=== PATIENT | male | born 1995 | race Hispanic/Latino ===

== ENCOUNTER 2017-08-28 10:42 | Emergency (ER) | payer OTHER ==
[~2017-08-28] VITALS: Ht 167.6 cm; Wt 121.6 kg
[~2017-08-28 10:42] MED LIST: MEDROL DOSEPAK1 PAC PO; PROVENTIL0.09 MG/A1 INH; ROBITUSSIN W/CO10 ML PO; ZITHROMAX Z-PA250 M1 PO
--- NOTE | 2017-08-28 11:13 | ED DYSPNEA/ASTHMA COMPLAINT ---
History of Present Illness General Chief Complaint: General Adult Stated Complaint: SOB, TIGHTNESS IN CHEST Source: patient Exam Limitations: no limitations Vital Signs & Intake/Output Vital Signs & Intake/Output Vital Signs Date Time Temp Pulse Resp B/P B/P Pulse O2 O2 Flow FiO2 Mean Ox Delivery Rate 08/28 1234 96.3 66 18 140/88 99 Room Air 08/28 1053 97.9 60 20 118/78 99 Room Air Allergies Coded Allergies: amoxicillin (From AUGMENTIN) (Intermediate, HIVES 10/15/15) clavulanic acid (From AUGMENTIN) (Intermediate, HIVES 10/15/15) Reconcile Medications Albuterol Sulfate (Proventil Hfa) 0.09 MG/Actuation TONI 2 PUFF INH Q4H PRN WHEEZING/SHORTNESS OF BREATH Azithromycin (Zithromax Z-Martin) 250 MG CAP 1 DP PO AD INFECTION 2 the first day followed by 1 for days 2-5 Methylprednisolone. (Medrol) 1 PAC PAC 1 PAC PO TAPER INFLAMMATION/BRONCHITIS Robitussin AC (Guaifenesin-Codeine Syrup) 10 ML UDC 10 ML PO Q6H PRN COUGH MAY CAUSE DROWSINESS Triage Note: C/O SOB SINCE 08/23, WITH SLIGHT COUGH, CHEST PRESSURE X 2 DAYS. Triage Nurses Notes Reviewed? yes HPI: 22M no PMH with 1 week of shortness of breath and 2 days of upper chest heaviness and right lower chest pain with deep inspiration. No recent cough, fever, chills, sputum, malaise, illness. No chest pain or dyspnea with exertion. No family history of heart disease or VTE. Does not smoke, no risk factors for CAD. Able to exercise without any problems. Past History Travel History Traveled to [place] past 21 day No Medical History Any Pertinent Medical History? 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 No Review of Systems Review of Systems Constitutional: Reports: no symptoms. EENTM: Reports: no symptoms. Respiratory: Reports: no symptoms. Cardiovascular: Reports: no symptoms. GI: Reports: no symptoms. Genitourinary: Reports: no symptoms. Musculoskeletal: Reports: no symptoms. Skin: Reports: no symptoms. Neurological/Psychological: Reports: no symptoms. Hematologic/Endocrine: Reports: no symptoms. Immunologic/Allergic: Reports: no symptoms. All Other Systems: Reviewed and Negative Physical Exam Physical Exam General Appearance: well developed/nourished, no apparent distress Head: atraumatic, normal appearance Eyes: Bilateral: normal appearance. Ears, Nose, Throat: normal pharynx, normal ENT inspection, hearing grossly normal Neck: normal inspection, supple, full range of motion Respiratory: normal breath sounds, chest non-tender, no respiratory distress Cardiovascular: regular rate/rhythm Gastrointestinal: soft, non-tender Extremities: normal inspection, normal range of motion Neurologic/Psych: awake, alert, oriented x 3, normal mood/affect Skin: intact, normal color, warm/dry Core Measures ACS in differential dx? Yes No ASA d/t Medication Refused CVA/TIA Diagnosis No Sepsis Present: No Sepsis Focused Exam Completed? No Progress Differential Diagnosis: asthma, AMI, altitude sickness, bronchitis, costochondritis, CHF, COPD, musculoskeletal pain, pericarditis, pulmonary embolism, pneumonia, pneumothorax, rib fracture, unstable angina Plan of Care: Orders Procedure Date/time Status Add-on Test (ER Only) 08/28 1223 Active URINE DRUGS OF ABUSE 08/28 1055 Active TROPONIN LEVEL 08/28 1055 Complete D-DIMER 08/28 1055 Complete C-REACTIVE PROTEIN 08/28 1055 Complete COMPREHENSIVE METABOLIC PANEL 08/28 1055 Complete CBC WITHOUT DIFFERENTIAL 08/28 1055 Complete EKG 08/28 1043 Active Laboratory Tests 08/28/17 1309: Methadone Screen Pending, Barbiturate Screen Pending, Ur Phencyclidine Scrn Pending, Amphetamines Screen Pending, U Benzodiazepines Scrn Pending, Urine Cocaine Screen Pending, Urine Cannabis Screen Pending 08/28/17 1135: Troponin I Cancelled, D-Dimer High Sensitivty Cancelled 08/28/17 1123: Anion Gap 13, Estimated GFR > 60, BUN/Creatinine Ratio 25.0, Glucose 89, Calcium 9.8, Total Bilirubin 0.2, AST 23, ALT 46, Alkaline Phosphatase 74, Troponin I < 0.01, C-Reactive Prot, Quant 0.6, Total Protein 8.2, Albumin 5.1 H, Globulin 3.1, Albumin/Globulin Ratio 1.6, CBC w Diff NO MAN DIFF REQ, RBC 6.13 H, MCV 78.2 L, MCH 25.3 L, MCHC 32.3 L, RDW 13.6, MPV 8.0, Gran % 61.9, Lymphocytes % 26.8, Monocytes % 7.5, Eosinophils % 3.5, Basophils % 0.3, Absolute Granulocytes 6.0, Absolute Lymphocytes 2.6, Absolute Monocytes 0.7 H, Absolute Eosinophils 0.3, Absolute Basophils 0 08/28/17 1055: D-Dimer High Sensitivty < 200 Diagnostic Imaging: Viewed by Me: Radiology Read. Discussed w/RAD: Radiology Read. Initial ED EKG: normal sinus rhythm, no ST T wave changes Departure Departure Disposition: HOME OR SELF CARE Condition: Stable Clinical Impression Primary Impression: Chest wall pain Referrals: Gina Carrasco MD (PCP/Family) Additional Instructions: Follow up with your primary care physician. If your symptoms worsen or if any new symptoms, return to emergency department. Departure Forms: Customer Survey General Discharge Information Critical Care Note Critical Care Note Critical Care Time: non-applicable
[2017-08-28 11:37] LABS: ABSOLUTE BASOPHIL COUNT 0 /CUMM (0.0-0.2); ABSOLUTE EOSINOPHIL COUNT 0.3 /CUMM (0.0-0.7); ABSOLUTE LYMPH COUNT 2.6 /CUMM (1.2-3.4); ABSOLUTE MONOCYTE COUNT 0.7 /CUMM (0.10-0.60); BASOPHIL % 0.3 % (0.0-2.0); EOSINOPHIL % 3.5 % (0-5); GRANULOCYTE % 61.9 % (42.2-75.2); HEMATOCRIT 47.9 % (42-52); MEAN CORPUSCULAR HGB 25.3 PG (27.0-31.0); MEAN CORPUSCULAR HGB CONC 32.3 G/DL (33.0-37.0); MEAN CORPUSCULAR VOLUME 78.2 FL (80.0-94.0); PLATELET COUNT 330 /CUMM (130-400); RBC DISTRIBUTION WIDTH 13.6 % (11.5-14.5); RED BLOOD CELL CT 6.13 /CUMM (4.70-6.10); WHITE BLOOD CELL COUNT 9.8 /CUMM (4.8-10.8)
--- NOTE | 2017-08-28 12:08 | RADIOLOGY REPORT ---
EXAMINATION: XR PORTABLE CHEST CLINICAL INFORMATION: Shortness of breath with right anterior pleuritic chest pain COMPARISON: 10/15/2015 TECHNIQUE: Portable portable AP 85 degrees upright view of the chest was obtained. FINDINGS: No significant abnormality is noted involving the heart, lungs, mediastinum, bony thorax or soft tissues. IMPRESSION: Unremarkable examination.
[2017-08-28 13:32] VITALS: BP 140/88
== END 2017-08-28 13:25 ==
LOC: ERH 10:42
PROVIDERS: Emergency Medicine
DX: R07.89 Other chest pain (principal)
CPT/HCPCS: 71045; 80307; 93005; 93010